=== PATIENT | male | born 1970 | race Caucasian/White ===

== ENCOUNTER 2017-08-21 10:11 | Observation (INO) | payer BC ==
[~2017-08-21] VITALS: Ht 172.7 cm; Wt 102.3 kg
[2017-08-21] VITALS (13 sets, daily range): BP systolic 103–137; BP diastolic 54–93; PULSE 66–107; TEMP 97.6–99.4
[2017-08-22 02:11] VITALS: BP 109/50; PULSE 81; TEMP 98.6
[2017-08-22 05:21] VITALS: BP 128/77; PULSE 96; TEMP 98.6
[2017-08-22 09:45] VITALS: BP 122/77; PULSE 97; TEMP 98.4
[2017-08-22 13:22] VITALS: BP 127/77; PULSE 91; TEMP 98.1
== END 2017-08-22 17:24 | disposition home or self-care (01) ==
LOC: SURG 10:11
DX: K80.00 Calculus of gallbladder with acute cholecystitis without obstruction (principal); K21.9 Gastro-esophageal reflux disease without esophagitis
CPT/HCPCS: G0378; G0379; J0171; J1100; J1170; J1956; J2405; J2704; J3010; J7030; J7120